=== PATIENT | male | born 1960 | race Caucasian/White ===

== ENCOUNTER 2017-09-06 20:48 | Observation (INO) | payer OTHER ==
--- NOTE | 2017-09-06 21:48 | EDPHY ---
H & P Stated Complaint: left side face swelling and pain since Saturday worst tonight Time Seen by Provider: 09/06/17 21:48 HPI/ROS: HPI CHIEF COMPLAINT: Left-sided facial swelling, pain HISTORY OF PRESENT ILLNESS: Patient is a 57-year-old male, he is otherwise healthy with no significant medical history presents emergency room left-sided facial swelling and pain. The swelling and pain is located over the left mandibular region left parotid region. He states this started on Saturday is progressively gotten worse. He has had no fever. He denies dental pain. Denies trouble swallowing. Denies oropharynx swelling or worsening pain. Current level pain 12/06. Past Medical History: Denies medical history Past Surgical History: Denies surgical history Social History: Denies daily use drugs alcohol tobacco. Family History: Noncontributory ROS REVIEW OF SYSTEMS: A comprehensive 10 point review of systems is otherwise negative aside from elements mentioned in the history of present illness. Exam Constitutional appears well nontoxic triage nursing summary reviewed, vital signs reviewed, awake/alert. Eyes normal conjunctivae and sclera, EOMI, PERRLA. HENT face: Significant swelling and tenderness over the left parotid region and TMJ region. Oropharynx there is no signs of Pino's, there is no signs of gumline abscess or oral pharyngeal infection. Airways patent. normal inspection, atraumatic, moist mucus membranes, no epistaxis, neck supple/ no meningismus, no raccoon eyes. Respiratory clear to auscultation bilaterally, normal breath sounds, no respiratory distress, no wheezing. Cardiovascular rate normal, regular rhythm, no murmur, no edema, distal pulses normal. Gastrointestinal soft, non-tender, no rebound, no guarding, normal bowel sounds, no distension, no pulsatile mass. Genitourinary no CVA tenderness. Musculoskeletal no midline vertebral tenderness, full range of motion, no calf swelling, no tenderness of extremities, no meningismus, good pulses, neurovascularly intact. Skin pink, warm, & dry, no rash, skin atraumatic. Neurologic awake, alert and oriented x 3, AAOx3, moves all 4 extremities equally, motor intact, sensory intact, CN II-XII intact, normal cerebellar, normal vision, normal speech. Psychiatric normal mood/affect. Heme/Lymph/Immune no lymphadenopathy. Differential Diagnosis: Includes but is not limited to in a particular order parotid infection parotid gland obstruction, parotid glands ductal stone, parotid abscess, facial abscess, dental infection Medical Decision Making: Plan for this patient IV establishment, blood work, CT maxillofacial with IV contrast. Re-evaluation: Spoke with the hospitalist service. Will admit the patient to Dr. Bills for left parotid mass. This appears to be solid. Spoke with ENT consulted Dr. Manzanares, reviewed the case with him. He does recommend IV Unasyn and IV Decadron. I have ordered both of these. He will consult on the patient in the morning. Spoke and updated the patient. Additionally spoke with the hospitalist service who agrees to admit. Patient is hemodynamically stable no acute distress. He is not septic. His blood work has been reviewed shows elevated white count. The CT of his face shows possible solid possible malignant tumor of the left parotid gland. This will need to be further evaluated. ENT. It is also possible this is an infection. Source: Patient - Personal History Current Tetanus/Diphtheria Vaccine: Yes Current Tetanus Diphtheria and Acellular Pertussis (TDAP): Yes - Medical/Surgical History Hx Asthma: No Hx Chronic Respiratory Disease: No Hx Diabetes: No Hx Cardiac Disease: No Hx Renal Disease: No Hx Cirrhosis: No Hx Alcoholism: No Hx HIV/AIDS: No Hx Splenectomy or Spleen Trauma: No Other PMH: denies - Social History Smoking Status: Never smoked Constitutional: Initial Vital Signs Temperature (C) 36.6 C 09/06/17 20:56 Heart Rate 80 09/06/17 20:56 Respiratory Rate 16 09/06/17 20:56 Blood Pressure 166/109 H 09/06/17 20:56 O2 Sat (%) 94 09/06/17 20:56 O2 Delivery Mode Room Air Allergies/Adverse Reactions: No Known Allergies Allergy (Unverified 09/06/17 20:59) Home Medications: Medication Instructions Recorded Amoxicillin/Clavulanate Pot 875 mg PO BID #14 tab 09/07/17 [Augmentin 875 MG TAB (*)] Dexamethasone [Decadron 4 MG (*)] 8 mg PO ONCE #2 tab 09/07/17 Medical Decision Making - Data Points Laboratory Results: Laboratory Results 09/06/17 22:22 09/06/17 22:22 Medications Given: Discontinued Medications Dexamethasone (Decadron Injection) 10 mg IVP DAILY LATONIA Stop: 03/05/18 23:44 Last Admin: 09/07/17 00:02 Dose: 10 mg Dexamethasone (Decadron Injection) 10 mg IVP DAILY LATONAI Stop: 03/06/18 08:59 Last Admin: 09/07/17 09:36 Dose: 10 mg Hydromorphone HCl (Dilaudid) 0.5 mg IVP EDNOW ONE Stop: 09/06/17 21:56 Last Admin: 09/06/17 22:18 Dose: 0.5 mg Hydromorphone HCl (Dilaudid) 0.5 mg IVP EDNOW ONE Stop: 09/06/17 22:51 Last Admin: 09/06/17 22:55 Dose: 0.5 mg Hydromorphone HCl (Dilaudid) 2 mg PO Q4HRS PRN PRN Reason: Pain, Severe Able to Take PO Stop: 09/16/17 23:37 Last Admin: 09/07/17 00:48 Dose: 2 mg Sodium Chloride (Ns) 1,000 mls @ 0 mls/hr IV EDNOW ONE; Wide Open PRN Reason: Protocol Stop: 09/06/17 21:56 Last Admin: 09/06/17 22:14 Dose: 1,000 mls Ampicillin Sodium/Sulbactam (Sodium 3 gm/ Sodium Chloride) 100 mls @ 200 mls/ hr IV EDNOW ONE PRN Reason: Protocol Stop: 09/07/17 00:11 Last Admin: 09/07/17 00:18 Dose: 100 mls Sodium Chloride (Ns) 1,000 mls @ 0 mls/hr IV ONCE ONE PRN Reason: Wide Open Stop: 09/06/17 23:49 Last Admin: 09/07/17 00:01 Dose: 1,000 mls Ampicillin Sodium/Sulbactam (Sodium 3 gm/ Sodium Chloride) 100 mls @ 200 mls/ hr IV Q6 LATONIA Stop: 10/07/17 05:59 Last Admin: 09/07/17 12:10 Dose: 100 mls Ondansetron HCl (Zofran) 4 mg IVP EDNOW ONE Stop: 09/06/17 21:56 Last Admin: 09/06/17 22:14 Dose: 4 mg Departure - Departure Disposition: [facility] Acute Clinical Impression: Parotid gland pain Condition: Good
[2017-09-06] MEDS ORDERED: HYDROmorphONE/DILAUDID 2 MG/ML INJ IVP ONE ×2 (21:55→22:50)
[2017-09-06] MEDS ORDERED: NS 1,000 ML IV ONE ×2 (21:55→23:48)
[2017-09-06] MEDS ORDERED: ONDANSETRON 4 MG/2 ML VIAL IVP ONE (21:55)
[2017-09-06 22:34] LABS: PLATELET COUNT 312 10^3/uL (150-400)
[2017-09-06] MEDS ORDERED: IOPAMIDOL (ISOVUE-300) 100 ML BTL ONE (22:48)
[2017-09-06] MEDS ORDERED: ONDANSETRON 4 MG/2 ML VIAL IVP PRN (23:38)
[2017-09-06] MEDS ORDERED: ACETAMINOPHEN 325 MG TAB PO PRN (23:38)
[2017-09-06] MEDS ORDERED: HYDROmorphone HCL/NS 0.5 MG/ML SYR IVP PRN (23:38)
[2017-09-06] MEDS ORDERED: HYDROmorphONE/DILAUDID 2 MG TAB PO PRN (23:38)
[2017-09-06] MEDS ORDERED: ONDANSETRON DISINTEGRATING 4 MG TAB PO PRN (23:38)
[2017-09-06] MEDS ORDERED: AMPICILLIN/SULBACTAM 3 GM in NS 100 ML IV ONE (23:42)
[2017-09-06] MEDS ORDERED: DEXAMETHASONE 10 MG/ML VIAL IVP SCH (23:45)
[2017-09-06] MEDS ORDERED: DEXAMETHASONE 10 MG/ML VIAL ONE (23:58)
--- NOTE | 2017-09-07 00:01 | PDGENHP ---
History and Physical - Chief Complaint L facial swelling - History of Present Illness 57 yo M w/ no significant PMHx p/w L facial swelling. Patient states he first noted mild L facial pain and swelling on Saturday of this week. Over the last 3 days the pain and swelling progressed so he came to the ED. He denies fevers or chills. He has no prior hx of this. He got all of his childhood vaccinations and denies any recent flu-like illness. At the time of my evaluation his pain is well controlled after IV opiates received in the ED. History Information - Allergies/Home Medication List Allergies/Adverse Reactions: No Known Allergies Allergy (Unverified 09/06/17 20:59) Home Medications: NK [No Known Home Meds] 09/06/17 [Last Taken Unknown] I have personally reviewed and updated: family history, medical history - Past Medical History no pertinent PMH - Surgical History Reports: no pertinent surgical hx - Family History Additional family history: Asked, denies - Social History Smoking Status: Never smoked Review of Systems Review of Systems: ROS: 10pt was reviewed & negative except for what was stated in HPI & below Physical Exam Physical Exam: Temp Pulse Resp BP Pulse Ox 36.6 C 80 16 166/109 H 94 09/06/17 20:56 09/06/17 20:56 09/06/17 20:56 09/06/17 20:56 09/06/17 20:56 Constitutional: no apparent distress, obese Eyes: PERRL, EOMI Ears, Nose, Mouth, Throat: moist mucous membranes, other (L facial swelling, cannot visualize ducts due to body habitus) Cardiovascular: regular rate and rhythym, no murmur, rub, or gallop Respiratory: no respiratory distress, no rales or rhonchi Gastrointestinal: normoactive bowel sounds, soft, non-tender abdomen Skin: warm, normal color Musculoskeletal: full muscle strength, no muscle tenderness Neurologic: AAOx3, CN II-XII Intact Psychiatric: interacting appropriately, not anxious Lab Data & Imaging Review 09/06/17 22:22 09/06/17 22:22 WBC 12.97 10^3/uL (3.80-9.50) H 09/06/17 22:22 RBC 6.40 10^6/uL (4.40-6.38) H 09/06/17 22:22 Hgb 13.8 g/dL (13.7-17.5) 09/06/17: Hct 42.4 % (40.0-51.0) 09/06/17: MCV 66.3 fL (81.5-99.8) L 09/06/17: MCH 21.6 pg (27.9-34.1) L 09/06/17: MCHC 32.5 g/dL (32.4-36.7) 09/06/17: RDW 18.5 % (11.5-15.2) H 09/06/17: Plt Count 312 10^3/uL (150-400) 09/06/17: MPV 9.1 fL (8.7-11.7) 09/06/17: Neut % (Auto) 65.9 % (39.3-74.2) 09/06/17: Lymph % (Auto) 22.1 % (15.0-45.0) 09/06/17: Dane % (Auto) 8.7 % (4.5-13.0) 09/06/17: Eos % (Auto) 2.2 % (0.6-7.6) 09/06/17: Baso % (Auto) 0.8 % (0.3-1.7) 09/06/17: Nucleat RBC Rel Count 0.0 % (0.0-0.2) 09/06/17: Absolute Neuts (auto) 8.55 10^3/uL (1.70-6.50) H 09/06/17: Absolute Lymphs (auto) 2.87 10^3/uL (1.00-3.00) 09/06/17: Absolute Monos (auto) 1.13 10^3/uL (0.30-0.80) H 09/06/17: Absolute Eos (auto) 0.28 10^3/uL (0.03-0.40) 09/06/17: Absolute Basos (auto) 0.10 10^3/uL (0.02-0.10) 05/11/18 22:22 Absolute Nucleated RBC 0.00 10^3/uL (0-0.01) 09/06/17 22:22 Immature Gran % 0.3 % (0.0-1.1) 09/06/17 22:22 Immature Gran # 0.04 10^3/uL (0.00-0.10) 09/06/17 22:22 Platelet Estimate ADEQUATE (ADEQ) 09/06/17 22:22 Hypochromasia 1+ H 09/06/17 22:22 Microcytic Cells 2+ H 09/06/17 22:22 ESR 41 MM/HR (0-20) H 09/06/17 22:22 Sodium 138 mEq/L (135-145) 09/06/17 22:22 Potassium 4.2 mEq/L (3.5-5.2) 09/06/17 22:22 Chloride 102 mEq/L (97-110) 09/06/17 22:22 Carbon Dioxide 23 mEq/l (22-31) 09/06/17 22:22 Anion Gap 13 mEq/L (8-16) 09/06/17 22:22 BUN 10 mg/dL (7-23) 09/06/17 22:22 Creatinine 0.8 mg/dL (0.7-1.3) 09/06/17 22:22 Estimated GFR > 60 09/06/17 22:22 Glucose 93 mg/dL (70-100) 09/06/17 22:22 Calcium 9.7 mg/dL (8.5-10.4) 09/06/17 22:22 C-Reactive Protein 5.8 mg/L (<10.0) 09/06/17 22:22 Assessment & Plan Assessment: 57 yo M p/w L facial swelling. Plan: 1. L parotid gland swelling - Presents with 3 day history of pain and swelling. Per discussion with Dr. Lynch, there appears to be a solid mass involving his L parotid. Timeline of symptoms (3 days) much more c/w stone or infection, but malignancy remains on the differential. - Admit for observation - ENT service consulted, appreciate assistance - Unasyn IV per ENT recs, blood cultures ordered - NPO after midnight in case ENT wants to perform biopsy 2. KATHIE - Not on CPAP at home. Diet - NPO @ [place] Code - Full Ppx - SCDs Dispo - Admit under observation status
[2017-09-07 04:54] LABS: PLATELET COUNT 278 10^3/uL (150-400)
[2017-09-07] MEDS ORDERED: AMPICILLIN/SULBACTAM 3 GM VIAL IV SCH (06:00)
[2017-09-07] MEDS: AMPICILLIN/SULBACTAM 3 GM in NS 100 ML IV SCH ×2 (06:08→12:10)
[2017-09-07] MEDS ORDERED: DEXAMETHASONE 10 MG/ML VIAL IVP SCH (09:00)
--- NOTE | 2017-09-07 10:34 | GCON ---
[f rep st] CONSULTATION ENT CONSULTATION NOTE DATE OF CONSULTATION: 09/07/2017 REASON FOR CONSULTATION: Left parotid mass. HISTORY: The patient is a 57-year-old man who noted Saturday of this week, initially swelling below t he left earlobe. Over the last few days, it intermittently enlarged, and then shrunk down in size. However, overall the swelling continued to progress to the point that last night he presented to the emergency department due to complaints of significant pain. He denied any fevers or chills. He has no past history of recurrent parotitis or kidney stones. He has had no recent illnesses. He was giv en IV opiate pain medication in the ER, and a scan was obtained which showed concern for possible gabriele id tumor of the left parotid gland. LABORATORY DATA: Showed a white count of 12.97, with increased neutrophils of 8.55. Sed rate was el evated at 41. He was admitted to the hospital service for pain control. I had recommended that he be given Decadro n and Unasyn. PHYSICAL EXAMINATION: Upon examining him this morning, he states his pain is "90% better." The swel ling he says has gone down significantly as well, and he is feeling much better. VITAL SIGNS: Blood pressure 120/75, respiratory rate of 16, O2 sat of 92% on room air. Temperature 36.9. GENERAL: Vasu macias is sitting up in bed, and appears comfortable. He has some obvious fullness of the left cheek. EARS: Shows normal external ears and ear canals. No signs of disease. No tenderness o tenzin the mastoids on either side. EYES: Grossly normal. NASAL: Anteriorly is clear. FACIAL: Is notable for a firm swelling of the entire left parotid gland. Maxi mal swelling is in the tail of the parotid gland, with some mild tenderness to palpation. No fluctua nce is noted. The skin over the area feels warm, but is not erythematous. NECK: Showed no palpable adenopathy or abnormal masses. ORAL CAVITY: Shows no trismus. Palate, tongue and floor of mouth a re normal. Tonsils are 2+ in size and symmetrical. No asymmetry of the pharyngeal ocasio is noted. I was able to milk a small amount of slightly cloudy saliva from the left parotid gland. This was ca ptured with a sterile culture swab. IMPRESSION: The patient has acute inflammation of the left parotid gland. Based on history and phys ical exam, I feel this is most likely an acute bacterial parotitis. I understand the report showed s ome concern of a solid tumor within the left parotid gland, and this certainly could be the case. Jose Manuel cardenas, I would like to get the acute swelling of the gland to resolve over the course of the next wee k, and the patient can be re-evaluated at that time. We may consider repeat imaging as well. If nee ded, we could have him set up for a needle biopsy if needed. I discussed this with the patient and h is . He has improved to the point that I think after 1-2 more doses of IV antibiotics, he could be sent home on oral Augmentin 875 mg p.o. b.i.d., possibly 1 more dose of oral Decadron 8 mg p.o. to morning (Saturday, September 08). I recommend that they call Saturday, and we will ge t him into my office for repeat evaluation on Saturday. Thank you very much for this consultation. Sincerely, /[id number]/MODL
[2017-09-07 12:07] VITALS: BP 113/89
--- NOTE | 2017-09-07 16:10 | GDS ---
[f rep st] DISCHARGE SUMMARY DISCHARGE DIAGNOSES: 1. Infected parotid gland with cellulitis, consistent with acute bacterial parotiditis. 2. Parotid mass. 3. Obstructive sleep apnea. HISTORY: Anurag is a 57-year-old male who developed left facial pain and swelling which progressed ove r the last [address] scan showed a left parotid solid mass in the superficial lobe, measurin g 2.7 cm, suspicious for possible malignancy. Dr. Manzanares saw him in consultation. He was able to express purulence from the parotid gland which was sent for culture. The patient clinically has a v sunshine acutely inflamed parotid gland, most consistent with an acute bacterial parotiditis. Plan is to treat with antibiotics and steroids and then re-evaluate the mass once that has all resolved. He was treated with IV Unasyn and IV Decadron and has dramatically improved and is now okay to transition t o oral Augmentin and 1 more dose of oral Decadron tomorrow morning at home. He will follow up in 2 d ays with ENT, Dr. Manzanares. DISCHARGE MEDICATIONS: Please see computerized record for full detailed list. New medications: 1. Augmentin 875 mg p.o. b.i.d. x7 days. 2. Decadron 8 mg p.o. 1 time tomorrow morning and then complete. ADDITIONAL DISCHARGE INSTRUCTIONS: 1. Follow up with ENT, Dr. Jet Manzanares [address] scan to re-evaluate mass after infection is fully treated. Patient was seen and examined by me on day of discharge. /[id number]/MODL
--- NOTE | 2017-09-07 16:25 | ASMTCMCOM ---
CM Note CM Note Notes: Patient admitted for L parotid gland swelling. Blood cultures pending, may need biopsy - awaiting ENT consult. D/C needs unclear at this time. Case Management will continue to follow for any IV antibiotic needs. If there are no IV abs needs, anticipate he will likely be independent upon discharge. Current Plan: TBD Date Signed: 09/07/2017 08:08 AM Electronically Signed By:Chloé Alcala RN
== END 2017-09-07 16:46 | disposition home or self-care (01) ==
LOC: F3N 09-07 00:43
PROVIDERS: ADMIT Student in an Organized Health Care Education/Training Program; ATTEND Internal Medicine
DX: K11.21 Acute sialoadenitis (principal); L03.211 Cellulitis of face; E86.9 Volume depletion, unspecified; G47.33 Obstructive sleep apnea (adult) (pediatric)
CPT/HCPCS: 70487; G0378; 96374; J0295; J1100; J1170; J2405; Q9967